=== PATIENT | female | born 1995 | race Caucasian/White ===

== ENCOUNTER 2017-07-29 18:07 | Emergency (ER) | payer SELFPAY ==
[~2017-07-29 18:07] MED LIST: ISOVUE-370 76%-LOCM 1 ML ONE; Iopamidol 370 76% 50 ML VIAL FS ONE
[2017-07-29 19:25] LABS: Bilirubin Negative (Negative); Blood, Urine Negative (Negative); Glucose, Urine (Dipstick) Negative (Negative); Ketone, Urine Trace mg/dL (Negative); Nitrite Negative (Negative); Protein, Urine (Dipstick) Negative (Neg-Trace); Urobilinogen 0.2 mg/dL (0.2-1.0)
[2017-07-29 19:43] LABS: #Basophils 0.1 thou/uL (0.0-0.2); #Eosinphils 2.2 thou/uL (0.0-0.7); #Lymphocytes 3.6 thou/uL (1.20-3.40); #Monocytes 0.8 thou/uL (0.11-0.59); %Basophils 0.6 % (0.0-1.0); %Eosinophils 15.2 % (0.0-10.0); %Lymphocytes 24.4 % (21.0-51.0); %Monocytes 5.2 % (0.0-10.0); Hematocrit 37.9 % (36.0-47.0); Mean Platelet Volume 7.1 fL (7.4-10.4); Red Blood Cell (RBC) Count 4.85 mill/uL (4.20-5.40); White Blood Cell (WBC) Count 14.6 thou/uL (4.8-10.8)
[2017-07-29 20:09] LABS: ALT (SGPT) 19 U/L (8-55); AST (SGOT) 28 U/L (5-34); Alkaline Phosphatase 53 U/L (40-150); Anion Gap 14 mmol/L (10-20); BUN (Urea Nitrogen) 8 mg/dL (7.0-18.7); Bilirubin, Total 0.3 mg/dL (0.2-1.2); Calc. Creatinine Clearance 0 mL/min (70-130); Calcium 9.3 mg/dL (7.8-10.44); Carbon Dioxide 26 mmol/L (22-29); Chloride 102 mmol/L (98-107); Estimated GFR-MDRD Greater than 90; Globulin 3.5 g/dL (2.4-3.5); Protein, Total 7.7 g/dL (6.0-8.3)
[2017-07-29] MEDS ORDERED: Ketorolac Tromethamine 30 MG/ML VIAL ONE (21:32)
--- NOTE | 2017-07-30 00:17 | CT ---
EXAM: ABDOMEN CT WITH CONTRAST PELVIC CT WITH CONTRAST 07/29/17 HISTORY: Right lower quadrant pain with right flank pain. COMPARISON: None. TECHNIQUE: Abdomen and pelvic CT are performed with IV contrast. Coronal reformatted image are submitted for in terpretation. FINDINGS: ABDOMEN CT: Lung bases are clear. Heart size is normal. No significant pericardial fluid. Descending thoracic ao rta and abdominal aorta have a normal caliber. Intra and extrahepatic portal vein is patent. The gal lbladder is unremarkable. Symmetric attenuation of the psoas muscles. Liver, spleen, pancreas and adrenal gland have appropriate enhancement. Symmetric enhancement of the kidneys. Bilaterally, no obstructive uropathy. No gastrohepatic, retrocrural, or periportal lymphadenopathy. No mesenteric mass, lymphadenopathy, free air, or free fluid. No evidence of bowel obstruction. Ileocecal junction is normal. Normal caliber air filled appendix e manating from the cecal apex. No evidence of periappendiceal inflammation. Hyperdensity in portions of appendix are presumed to represent proximal contrast and possible distal appendicolith. Cecal ape x is unremarkable. Scattered fecal material in a nondistended, nondilated colon. Proximal sigmoid co leola diverticulosis, without evidence of diverticulitis. PELVIC CT: The uterus and adnexa are unremarkable. Urinary bladder is unremarkable. No pelvic mass, lymphadeno berhane, free air or significant free fluid. There are no osteoblastic or osteolytic lesions. IMPRESSION: Normal caliber appendix. POS: [facility]
== END 2017-07-29 22:45 | disposition home or self-care (01) ==
LOC: ERS 18:07
DX: R10.31 Right lower quadrant pain (principal); R10.32 Left lower quadrant pain; F41.9 Anxiety disorder, unspecified; F31.9 Bipolar disorder, unspecified
CPT/HCPCS: 36415; 74177; 80053; 81003; 84702; 85025; 96374; J1885